=== PATIENT | female | born 1980 | race Caucasian/White ===

== ENCOUNTER 2021-05-23 14:24 | Outpatient (CLI) | payer OTHER | END 2021-05-23 14:25 | disposition home or self-care (01) | LOC: DTY/OP 14:24 | PROVIDERS: ATTEND Family Medicine | DX: E78.00 Pure hypercholesterolemia, unspecified (principal) | CPT/HCPCS: 97802 ==

== ENCOUNTER 2023-02-12 13:28 | Outpatient (CLI) | payer OTHER | END 2023-02-12 13:29 | disposition home or self-care (01) | LOC: BICRAD 13:28 | PROVIDERS: ATTEND Family Medicine | DX: Z92.89 Personal history of other medical treatment (principal) | CPT/HCPCS: 71046 ==

== ENCOUNTER 2024-04-20 08:16 | Outpatient (CLI) | payer OTHER | END 2024-04-20 08:17 | disposition home or self-care (01) | LOC: BICULT 08:16 | PROVIDERS: ATTEND Family Medicine | DX: I77.3 Arterial fibromuscular dysplasia (principal) | CPT/HCPCS: 93880 ==